=== PATIENT | female | born 1960 | race Caucasian/White ===

== ENCOUNTER → 2017-04-28 15:16 | Outpatient (CLI) | payer BC, SELFPAY ==
--- NOTE | 2017-04-28 15:22 | US_ITS ---
US breast RT complete COMPARISON: None INDICATION: Tender axillary mass ORDERING PHYSICIAN: Melissa Box PATIENT AGE: 56 years TECHNIQUE: Complete ultrasound performed of the right breast including axilla FINDINGS: There are enlarged hypoechoic lymph nodes in the right axilla measuring up to 4 x 5 x 3 cm. General survey of the right breast is unremarkable. IMPRESSION: Hypoechoic axillary adenopathy BI-RADS Category: 3 Benign Finding Short Term Follow-up RECOMMENDED FOLLOW-UP: IMM - IMMEDIATE FOLLOW-UP RECOMMENDED Recommend 4 week sonographic follow-up following adequate treatment for the lymphadenopathy. (A letter has been sent to the patient regarding results of the study.)
== END ==
PROVIDERS: PCP Physician Assistant; Visit Provider Physician Assistant
DX: R22.9 Localized swelling, mass and lump, unspecified (principal)
CPT/HCPCS: 76641

== ENCOUNTER 2017-05-04 14:06 | Emergency (ER) | payer BC, SELFPAY ==
--- NOTE | 2017-05-04 14:54 | HMH.EDGENADL ---
ED Disposition Clinical Impression: Axillary lymphadenopathy, Cat scratch Disposition: Home, Self-Care Condition on Discharge: Good Additional Instructions: continue abx. drink gotrade. return if needed follow up with pcp in am Referrals: Melissa Box [Primary Care Provider] - - Critical Care Critical Care Time: No Attestation: On 05/04/17, the high probability of a clinically significant, sudden or life threatening deterioration of the following system(s) required my full and direct attention, intervention and personal management. The time I documented below is in addition to time spent performing reported procedures but includes the following listed in this critical care notation. Medical Decision Making - Medical Records Medical records reviewed: Yes: I reviewed the patient's medical records. Vital Signs: 05/04/17 15:32 Temperature 98.3 F Temperature Source Oral Pulse Rate [Right Brachial] 88 Respiratory Rate 18 Blood Pressure [Right Arm] 143/85 Blood Pressure Mean [Right Arm] 104 Blood Pressure Source [Right Arm] Automatic Cuff Blood Pressure Position [Right Arm] Sitting 02 Sat by Pulse Oximetry 97 Oxygen Delivery Method Room Air - Lab Data Lab Results 05/04/17 15:36: WBC 5.9, RBC 4.34, Hgb 12.7, Hct 39.3, MCV 90.5, MCH 29.3, MCHC 32.4, RDW 13.4, Plt Count 224, MPV 7.4, Neut % (Auto) 47.1, Lymph % (Auto) 39.4, [place] % (Auto) 6.5, Eos % (Auto) 6.0, Baso % (Auto) 1.1, Neut # (Auto) 2.8, Lymph # (Auto) 2.1, [place] # (Auto) 0.4, Eos # (Auto) 0.4, Baso # (Auto) 0.1, ESR 31 H 05/04/17 15:36: Sodium 137, Potassium 4.2, Chloride 101, Carbon Dioxide 29, Anion Gap 11.2, BUN 14, Creatinine 1.09 H, Estimated Creat Clear 72, Estimated GFR 52 L, Est GFR ( Amer) 62, Glucose 87, Calcium 8.9, Magnesium 2.2, Total Bilirubin 0.3, AST 30, ALT 41, Alkaline Phosphatase 73, Total Protein 8.1, Albumin 4.0, Globulin 4.1 H, Albumin/Globulin Ratio 1.0 L 05/04/17 15:36: Lactic Acid 1.0 Result diagrams: 05/04/17 15:36 02 15:36 Orders (Tests/Meds): ORDERS Category Date Time Status Blood Culture Stat Micro 05/04/17 15:36 Received - Sunil Inquiry Pt receiving controlled substance: No Sunil was queried for this patient: No Medical Decision Making Narrative: The patient has had normal labs and she was advised to continue antibiotics and follow-up with a primary care physician. General Adult HPI - General Stated complaint: cat stratch fever - History of Present Illness HPI narrative: 56 years old white female with history of hypertension and hyperlipidemia. She developed right central axillary lymph nodes a week ago and was . diagnosed with cat scratch fever. She started on Bactrim 6 days ago. 2 days later, she developed muscle twitches and was told by her primary care physician to go to the ER and be checked. The patient denies having fever shortness of breath cough congestion nausea vomiting abdominal pain or rash any other symptoms. Location: lower extremity Radiation: non-radiation Severity: mild Quality: other (Minor cramps.) Consistency: intermittent Exacerbating factors: none Associated symptoms: denies other symptoms Treatments prior to arrival: none - Related Data Home Medications Medication Instructions Recorded Confirmed Aspirin [Aspirin 81mg EC Tab] 81 mg PO DAILY 05/04/17 05/04/17 Escitalopram Oxalate 10 mg PO DAILY 05/04/17 05/04/17 Losartan/Hydrochlorothiazide 1 each PO DAILY 05/04/17 05/04/17 [Losartan-Hctz 100-25 mg Tab] Simvastatin [Simvastatin] 1 tab PO DAILY 05/04/17 05/04/17 Triamterene/Hydrochlorothiazid 1 tab PO DIRECTED 05/04/17 05/04/17 [Maxzide-25 tablet] Allergies Allergy/AdvReac Type Severity Reaction Status Date / Time azithromycin Allergy Verified 05/04/17 15:39 PENICILLIN Allergy Severe S-DIFF. Uncoded 03/07/17 14:35 BREATHING [facility] History I have reviewed the patient's past medical history: Yes
--- NOTE | 2017-05-04 14:58 | ED_ITS ---
ED Disposition Clinical Impression: Axillary lymphadenopathy, Cat scratch Disposition: Home, Self-Care Condition on Discharge: Good Additional Instructions: continue abx. drink gotrade. return if needed follow up with pcp in am Referrals: Melissa Box [Primary Care Provider] - - Critical Care Critical Care Time: No Attestation: On 05/04/17, the high probability of a clinically significant, sudden or life threatening deterioration of the following system(s) required my full and direct attention, intervention and personal management. The time I documented below is in addition to time spent performing reported procedures but includes the following listed in this critical care notation. Medical Decision Making - Medical Records Medical records reviewed: Yes: I reviewed the patient's medical records. Vital Signs: 05/04/17 15:32 Temperature 98.3 F Temperature Source Oral Pulse Rate [Right Brachial] 88 Respiratory Rate 18 Blood Pressure [Right Arm] 143/85 Blood Pressure Mean [Right Arm] 104 Blood Pressure Source [Right Arm] Automatic Cuff Blood Pressure Position [Right Arm] Sitting 02 Sat by Pulse Oximetry 97 Oxygen Delivery Method Room Air - Lab Data Lab Results 05/04/17 15:36: WBC 5.9, RBC 4.34, Hgb 12.7, Hct 39.3, MCV 90.5, MCH 29.3, MCHC 32.4, RDW 13.4, Plt Count 224, MPV 7.4, Neut % (Auto) 47.1, Lymph % (Auto) 39.4 , [place] % (Auto) 6.5, Eos % (Auto) 6.0, Baso % (Auto) 1.1, Neut # (Auto) 2.8, Lymph # (Auto) 2.1, [place] # (Auto) 0.4, Eos # (Auto) 0.4, Baso # (Auto) 0.1, ESR 31 H 05/04/17 15:36: Sodium 137, Potassium 4.2, Chloride 101, Carbon Dioxide 29, Anion Gap 11.2, BUN 14, Creatinine 1.09 H, Estimated Creat Clear 72, Estimated GFR 52 L, Est GFR ( Amer) 62, Glucose 87, Calcium 8.9, Magnesium 2.2, Total Bilirubin 0.3, AST 30, ALT 41, Alkaline Phosphatase 73, Total Protein 8.1 , Albumin 4.0, Globulin 4.1 H, Albumin/Globulin Ratio 1.0 L 05/04/17 15:36: Lactic Acid 1.0 Result diagrams: 05/04/17 15:36 05/04/17 15:36 Orders (Tests/Meds): ORDERS Category Date Time Status Blood Culture Stat Micro 05/04/17 15:36 Received - Sunil Inquiry Pt receiving controlled substance: No Sunil was queried for this patient: No Medical Decision Making Narrative: The patient has had normal labs and she was advised to continue antibiotics and follow-up with a primary care physician. General Adult HPI - General Stated complaint: cat stratch fever - History of Present Illness HPI narrative: 56 years old white female with history of hypertension and hyperlipidemia. She developed right central axillary lymph nodes a week ago and was . diagnosed with cat scratch fever. She started on Bactrim 6 days ago. 2 days later, she developed muscle twitches and was told by her primary care physician to go to the ER and be checked. The patient denies having fever shortness of breath cough congestion nausea vomiting abdominal pain or rash any other symptoms. Location: lower extremity Radiation: non-radiation Severity: mild Quality: other (Minor cramps.) Consistency: intermittent Exacerbating factors: none Associated symptoms: denies other symptoms Treatments prior to arrival: none - Related Data Home Medications Medication Instructions Recorded Confirmed Aspirin [Aspirin 81mg EC Tab] 81 mg PO DAILY 05/04/17 02
[2017-05-04 15:32] VITALS: BP 143/85; PULSE 88; RESP 18; TEMP 36.8; O2SAT 97; BMI 33.6
[2017-05-04 15:56] LABS: Hematocrit 39.3 % (37.0-47.0); Hemoglobin 12.7 g/dL (12.2-16.2); Mean Corpuscular HGB Conc 32.4 g/dL (31.8-35.4); Mean Corpuscular Hemoglobin 29.3 pg (27.0-31.2); Mean Corpuscular Volume 90.5 fl (81-99); Mean Platelet Volume 7.4 fl (7.4-10.4); Neutrophils % 47.1 % (37.0-80.0); Platelet Count 224 K/mm3 (142-424); Red Blood Count 4.34 M/mm3 (4.20-5.40); Red Cell Distribution Width 13.4 % (11.5-17.5); White Blood Count 5.9 K/mm3 (4.8-10.8)
[2017-05-04 15:57] LABS: Basophils # 0.1 K/mm3 (0-0.2); Basophils % 1.1 % (0.1-2.0); Eosinophils # 0.4 K/mm3 (0.0-0.4); Lymphocytes # 2.1 K/mm3 (0.7-4.5); Lymphocytes % 39.4 K/mm3 (10-50); Monocytes # 0.4 K/mm3 (0.1-1.0); Monocytes % 6.5 % (1.7-9.3); Neutrophils # 2.8 K/mm3 (1.8-7.8)
[2017-05-04 16:10] LABS: Alanine Aminotransferase 41 U/L (12-78); Alkaline Phosphatase 73 U/L (46-116); Anion Gap 11.2 mEq/L (5-15); Aspartate Amino Transferase 30 U/L (15-37); Bilirubin,Total 0.3 mg/dL (0.2-1.0); Blood Urea Nitrogen 14 mg/dL (7-18); Calcium 8.9 mg/dL (8.5-10.1); Carbon Dioxide 29 mmol/L (21.0-32.0); Chloride 101 mmol/L (98-107); Creatinine Clearance Estimated 72 mL/min (0-300); Creatinine,Serum 1.09 mg/dL (0.55-1.02); Estimated Glomerular Filt Rate 52 ml/min (>60); GFR (African American) 62 ML/MIN (>60); Globulin 4.1 gm/dl (1.3-3.2); Glucose 87 mg/dL (74-106); Magnesium 2.2 mg/dL (1.4-2.2); Potassium 4.2 mmoL/L (3.5-5.1); Sodium 137 mmol/L (136-145); Total Protein,Serum 8.1 gm/dL (6.4-8.2)
[2017-05-04 16:54] LABS: Erythrocyte Sedimentation Rate 31 mm/hr (0-30)
[2017-05-04 17:29] VITALS: BP 136/85; PULSE 85; RESP 18; TEMP 36.6
== END 2017-05-04 17:29 | disposition home or self-care (01) ==
PROVIDERS: Emergency Provider Emergency Medicine; PCP Physician Assistant
DX: R59.0 Localized enlarged lymph nodes (principal); A28.1 Cat-scratch disease; W55.03XA Scratched by cat, initial encounter; I10 Essential (primary) hypertension; E78.5 Hyperlipidemia, unspecified; Z79.82 Long term (current) use of aspirin; Z88.0 Allergy status to penicillin; Z88.1 Allergy status to other antibiotic agents
CPT/HCPCS: 80053; 83605; 83735; 85025; 85651; 87040; 99281

== ENCOUNTER → 2017-05-08 10:52 | Outpatient (CLI) | payer BC, SELFPAY | PROVIDERS: PCP Physician Assistant; Visit Provider Physician Assistant | DX: Z20.828 Contact with and (suspected) exposure to other viral communicable diseases (principal) | CPT/HCPCS: 87275; 87276 ==

== ENCOUNTER → 2017-06-02 06:31 | Outpatient (CLI) | payer BC, SELFPAY ==
--- NOTE | 2017-06-02 | CA_ITS ---
PROCEDURE: 2-D M-mode and color Doppler study INDICATIONS FOR THE TEST: Chest pain COPD Heart Murmur+ Tobacco Smoking Palpitations Fatigue Syncope Edema Hypertension+Diabetes Mellitus Rheumatic Fever SOB+NEVES Obesity Hyperlipidemia+ Family History HD+ Additional History abn EKG, cat scratch fever PATIENT INFORMATION HEIGHT: 59 WEIGHT:171 GENDER: Female B/P: 161/82 2-D/M-MODE INTERPRETATION: 2-D MEASUREMENTS OBSERVED VALUES IN CMS Right Ventricular Dimension (RVDd) 2.0 Interventricular Septum (Thickness)(IVsd) 0.7 Left Ventricular Internal Dimensions(LVIDd) 4.7 Left Ventricular Posterior Wall (Thickness)(LVPWd) 0.8 Aortic Root 2.5 Aortic Cusp Separation 2.1 Left Atrial Dimensions (LAD) 3.4 2D 1. Left atrium is qualitatively mildly enlarged, left ventricle is normal size, there is no concentric left ventricular hypertrophy, visually estimated ejection fraction 55% with no obvious regional wall motion abnormality. 2. The right atrium and right ventricle are normal size and contractility. 3. The aortic valve is minimally thickened and fibrosed. 4. The mitral and tricuspid valve leaflets are minimally thickened. 5. The pulmonic valve is poorly visualized. 6. No significant pericardial effusion noted. DOPPLER INTERROGATION: Doppler interrogation of the aortic, mitral and tricuspid valvular presence of moderate aortic, mild mitral and moderate tricuspid regurgitation, calculated right ventricular systolic pressure is 41 mmHg consistent with moderate pulmonary hypertension, diastolic parameters are inconclusive. CONCLUSION: 1. Mildly enlarged left atrium, normal left ventricular size, visually estimated ejection fraction 55% with no obvious regional wall motion abnormality, diastolic parameters are inconclusive. 2. Moderate aortic, mild mitral and moderate tricuspid regurgitation, calculated right ventricular systolic pressure is 41 mmHg consistent with moderate pulmonary hypertension 3. No significant pericardial effusion noted.
--- NOTE | 2017-06-02 06:37 | NM_ITS ---
History and Indications: Hypertension, hyperlipidemia, family history, fatigue and abnormal EKG Procedure: Patient exercised on Zeus protocol 6 minutes, resting heart rate was 72 beats per resting blood pressure 156/90, with exercise maximum heart rate achieved 196% of the maximum predicted heart rate and a blood pressure was 216/80. Test was started due to shortness of breath and fatigue, patient denied any complained of chest pain. Patient has adequate exercise capacity achieved 7mets of workload on treadmill, the blood pressure response to exercise was hypertensive. Electrocardiogram: Resting electrocardiogram showed sinus rhythm, with exercise there is less than 1.[address] segment depression noted from the baseline EKG. The EKG portion of the exercise Myoview is negative for ischemia. Cardiac stress and resting SPECT images: Cardiac stress and resting SPECT images were obtained using technetium 99 Myoview 10.3 mCi at rest and 30.0 mCi at stress, gated SPECT further analysis of segmental wall motion and calculation of the ejection fraction also done. Cardiac stress and rest SPECT images show uniform myocardial activity without any segmental perfusion abnormality, computer derived ejection fraction is over 65% with no obvious regional wall motion abnormality, right ventricle is normal size and contractility. Conclusion: 1. The EKG portion of the exercise Myoview is negative for ischemia, patient has adequate exercise capacity achieved 7mets of workload on treadmill, the blood pressure response to exercise was hypertensive, there was no exercise-induced chest discomfort. 2. No obvious scintigraphic evidence of reversible ischemia seen, computer derived ejection fraction is over 65% with no obvious regional wall motion abnormality, right ventricle is normal size and contractility.
--- NOTE | 2017-06-02 09:58 | HMH.ITSHM ---
aspirin triamterene losartan simvastatin escitalopram
== END ==
PROVIDERS: PCP Physician Assistant; Visit Provider Internal Medicine
DX: R06.00 Dyspnea, unspecified (principal); R59.0 Localized enlarged lymph nodes; W55.03XA Scratched by cat, initial encounter; R07.9 Chest pain, unspecified; R01.1 Cardiac murmur, unspecified
CPT/HCPCS: 78452; 93017; 93306; A9502

== ENCOUNTER → 2018-05-22 16:39 | Outpatient (CLI) | payer BC, SELFPAY ==
--- NOTE | 2018-05-22 16:45 | XR_ITS ---
XR chest 2V HISTORY: Cough and congestion ITS.REASON: UPPER RESPIRATORY INFECTION ORDERING PHYSICIAN: Juani Evans PATIENT AGE: 57 years COMPARISON: None FINDINGS: The cardiomediastinal silhouette and pulmonary vascularity are within normal limits. The lungs are clear without infiltrates, suspicious nodules, or pleural effusions. No acute bony abnormalities. IMPRESSION: Negative chest, no acute finding
== END ==
PROVIDERS: PCP Family Medicine; Visit Provider Nurse Practitioner Family
DX: J06.9 Acute upper respiratory infection, unspecified (principal)
CPT/HCPCS: 71046

== ENCOUNTER → 2019-03-01 10:38 | Outpatient (CLI) | payer BC, SELFPAY ==
--- NOTE | 2019-03-01 10:44 | XR_ITS ---
PROCEDURE: XR WRIST LT MIN 3V CLINICAL INDICATION: LT WRIST PAIN Left wrist pain COMPARISON: No exams were available for comparison FINDINGS: No fracture, dislocation, lytic change, or blastic change evident. No significant degenerative change IMPRESSION: No acute findings. Dictated by: Arvind Solo MD 03/01/2019 13:28 Electronically signed by Arvind Solo MD in [place] 03/01/2019 13:28
== END ==
PROVIDERS: PCP Family Medicine; Visit Provider Physician Assistant
DX: M25.532 Pain in left wrist (principal)
CPT/HCPCS: 73110

== ENCOUNTER → 2020-06-16 11:01 | Outpatient (CLI) | payer BC, SELFPAY ==
[2020-06-16 11:33] LABS: Basophils # 0.1 K/mm3 (0-0.2); Basophils % 0.9 % (0.1-2.0); Eosinophils # 0.2 K/mm3 (0.0-0.4); Eosinophils % 2.6 % (0.1-12.0); Hematocrit 42.7 % (37.0-47.0); Hemoglobin 14.2 g/dL (12.2-16.2); Lymphocytes # 2.4 K/mm3 (0.7-4.5); Lymphocytes % 40.8 % (10-50); Mean Corpuscular HGB Conc 33.1 g/dL (31.8-35.4); Mean Corpuscular Volume 90.5 fl (81-99); Mean Platelet Volume 7.2 fl (7.4-10.4); Monocytes # 0.3 K/mm3 (0.1-1.0); Monocytes % 4.3 % (1.7-9.3); Neutrophils % 51.5 % (37.0-80.0); Platelet Count 189 K/mm3 (142-424); Red Blood Count 4.72 M/mm3 (4.20-5.40); White Blood Count 5.9 K/mm3 (4.8-10.8)
[2020-06-16 11:40] LABS: Chloride 102 mmol/L (98-107); Potassium 4.4 mmoL/L (3.5-5.1); Sodium 141 mmol/L (136-145)
[2020-06-16 11:43] LABS: Alanine Aminotransferase 25 U/L (12-78); Albumin Level 5.1 g/dl (3.5-5.0); Albumin/Globulin Ratio 1.6 (1.1-1.8); Alkaline Phosphatase 73 U/L (38-126); Anion Gap 15.4 mEq/L (5-15); Aspartate Amino Transferase 36 U/L (14-36); Bilirubin,Total 0.9 mg/dl (0.2-1.3); Blood Urea Nitrogen 15 mg/dl (7-17); Carbon Dioxide 28 mmol/L (22.0-30.0); Chol/HDL Ratio 3.8 (1-3.5); Cholesterol 139 mg/dl (140-200); Estimated Glomerular Filt Rate 73 ml/min (>60); GFR (African American) 88 ML/MIN (>60); Globulin 3.2 g/dL (1.3-3.2); Glucose 100 mg/dl (74-100); HDL Cholesterol 37 mg/dl (40-60); Total Protein,Serum 8.3 g/dl (6.3-8.2); Triglycerides 148 mg/dl (30-150); VLDL Cholesterol 30 mg/dL (0-40)
[2020-06-16 11:54] LABS: Direct LDL Cholesterol 63.29 mg/dL (100-129)
[2020-06-16 12:00] LABS: 25-OH Vitamin D, Total 33.6 ng/mL (30-100)
== END ==
PROVIDERS: Visit Provider Nurse Practitioner Family
DX: I10 Essential (primary) hypertension (principal); E78.5 Hyperlipidemia, unspecified; E55.9 Vitamin D deficiency, unspecified; D50.8 Other iron deficiency anemias
CPT/HCPCS: 36415; 80053; 80061; 82306; 85025

== ENCOUNTER → 2020-06-23 14:50 | Outpatient (CLI) | payer BC, SELFPAY ==
--- NOTE | 2020-06-23 14:58 | XR_ITS ---
PROCEDURE: XR DEXA AXIAL SKELETON CLINICAL HISTORY: OSTEOPOROSIS COMPARISON: No exams were available for comparison FINDINGS: The right hip BMD is 0.736 with a T-score of -1.0. The left hip BMD is 0.741 with a T-score of -1.0. The lumbar spine BMD is 1.129 with a T-score of 0.7. IMPRESSION: This patient is considered normal according to the World Health Organization criteria. Fracture risk is low. Based on these results a follow-up exam is recommended in 2 year. Dictated by: Arvind Solo MD 06/23/2020 22:06 Arvind Solo MD in [place] 06/24/2020 09:33
--- NOTE | 2020-06-23 14:58 | MM_ITS ---
PROCEDURE: MM DIG SCREENING MAMM BI W/CAD Digital Breast Tomosynthesis Included CLINICAL INDICATION: SCREENING There is no personal or family history of breast cancer. COMPARISON: MG MAMMO SCREENING DIGITAL BILAT from 08/05/2015 MG Screening-Bilateral Mammography from 08/08/2016 TECHNIQUE: Standard CC and MLO images and 3D Tomosynthesis was obtained. R2 CAD reviewed. FINDINGS: Moderate scattered fibroglandular densities are seen throughout both breasts. There are no CAD markings. There is no new or suspicious lesion in either breast and no suspicious microcalcifications. IMPRESSION: Moderate breast density with no suspicious lesions seen BI-RAD Category: 1 Negative FOLLOW-UP: 1YR 1 Year Follow-up (A letter has been sent to the patient regarding results of the study.) Dictated by: Dr. Ghassan Barry MD 07/01/2020 09:02 Dr. Ghassan Barry MD in [place] 07/01/2020 09:02
== END ==
PROVIDERS: PCP Family Medicine; Visit Provider Nurse Practitioner Family
DX: Z12.31 Encounter for screening mammogram for malignant neoplasm of breast (principal); M81.0 Age-related osteoporosis without current pathological fracture
CPT/HCPCS: 77063; 77067; 77080

== ENCOUNTER 2020-12-27 09:50 | Emergency (ER) | payer BC, SELFPAY ==
[2020-12-27 09:55] VITALS: BP 129/76; PULSE 91; RESP 18; TEMP 36.8; O2SAT 99; BMI 30.8
[2020-12-27 10:08] VITALS: BP 129/76; PULSE 91; RESP 18; TEMP 36.8
--- NOTE | 2020-12-27 10:23 | HMH.EDUTC ---
[facility] [place] Clinical Impression: Viral syndrome Disposition: Home, Self-Care Condition on Discharge: Good Instructions: DI for Viral Syndrome, DI for COVID-19 (Suspected or Confirmed ), Preventing the Spread of Coronavirus Discharge Instructions Additional Instructions: Drink plenty of fluids. Take tylenol or ibuprofen for pain or fever. Take the medications as directed. Follow up with your regular doctor. GO TO THE ER FOR ANY WORSENING SYMPTOMS Quarantine until you know the results of your covid-19 test. If it is positive, the health department should call you and give you further instructions about your length of Quarantine and other things. Notify your school or workplace of your results and follow their instructions regarding return to work/school. Prescriptions: Ondansetron [Zofran 4mg ODT] 4 mg PO DAILYP PRN #12 tab PRN Reason: Nausea Transmission Status: Received by [id number] Referrals: Sixto Trent MD [Primary Care Provider] - Forms: Work/School Release Time of Disposition: 10:29 Medical Decision Making - Medical Records Medical records reviewed: No: I reviewed the patient's medical records. - Sunil Inquiry Pt receiving controlled substance: No Vital Signs: 12/27/20 09:55 12/27/20 10:08 Temperature 98.2 F 98.2 F Temperature Source Oral Pulse Rate 91 H Pulse Rate [Left] 91 H Respiratory Rate 18 18 Blood Pressure 129/76 Blood Pressure [Right Arm] 129/76 Blood Pressure Mean [Right Arm] 93 02 Sat by Pulse Oximetry 99 [facility] [place] HPI - General Stated complaint: covid symptoms, wants test Time Seen by Provider: 12/27/20 10:23 Mode of Arrival: Ambulatory Source of Information: Patient Limitations: No Limitations Description of Symptoms (Recalled from Triage Doc. by RN): pt c/o LOCKHART, body aches and fever. HEENT Symptoms (Recalled from RN notes): Yes (LOCKHART) Resp Symptoms (Recalled from RN notes): No Skin Symptoms (Recalled from RN notes): No MS Symptoms (Recalled from RN notes): No Functional Status (Recalled from RN notes): myalgia and febrile - History of Present Illness Provider Complaint: She states that she has a headache, nausea, body aches and she has felt bad since yesterday. She has been fully vaccinated against covid-19. She denies any cough, congestion, sore throat, or other complaints. - Related Data Home Medications Medication Instructions Recorded Confirmed Aspirin [Aspirin 81mg EC Tab] 81 mg PO DAILY 05/04/17 05/04/17 Escitalopram Oxalate 10 mg PO DAILY 05/04/17 05/04/17 Losartan/Hydrochlorothiazide 1 each PO DAILY 05/04/17 05/04/17 [Losartan-Hctz 100-25 mg Tab] Simvastatin 1 tab PO DAILY 05/04/17 05/04/17 Triamterene/Hydrochlorothiazid 1 tab PO DIRECTED 05/04/17 05/04/17 [Maxzide-25 tablet] Bifidobacterium infantis 1.5 1,500 mmu cells PO DAILY cap 05/24/17 billion cell capsule loratadine 10 mg tablet 10 mg PO DAILY tab 05/24/17 naproxen 500 mg tablet 500 mg PO DAILY tab 05/24/17 ondansetron HCl 4 mg tablet 4 mg PO Q4H PRN 05/24/17 tizanidine 4 mg capsule 4 mg PO Q8H 05/24/17 Previous Rx's Medication Instructions Recorded Fluticasone Propionate [Flonase 2 spr NS DAILY #1 bottle 08/09/18 50mcg nasal spray 16gm] Ondansetron [Zofran 4mg ODT] 4 mg PO DAILYP PRN #12 tab 12/27/20 Allergies Allergy/AdvReac Type Severity Reaction Status Date / Time PENICILLIN Allergy Severe S-DIFF. Uncoded 03/07/17 14:35 BREATHING - Worker's Comp Is this a Worker's Comp case?: No [facility] History - Hepatitis A Screen Drug use history?: No High risk sexual behaviors?: No History of sexually transmitted infection?: No Currently employed?: No Childcare worker?: No Do you have indoor plumbing?: Yes Do you have electricity?: Yes Attestation statement:: This patient has been screened for Hepatitis A risk factors. I have reviewed the patient's past medical history: Yes Medical History: Reports:
== END 2020-12-27 10:39 | disposition home or self-care (01) ==
PROVIDERS: Emergency Provider Nurse Practitioner Family; PCP Family Medicine
DX: Z20.822 Contact with and (suspected) exposure to COVID-19 (principal)
CPT/HCPCS: 99202; C9803; G0463; U0003; U0005

== ENCOUNTER → 2021-01-18 11:37 | Outpatient (CLI) | payer BC, SELFPAY ==
[2021-01-18 12:46] LABS: Adenovirus,PCR Not Detected (NotDetected); Bordetella Pertussis Not Detected (NotDetected); Chlamydophila Pneumoniae, PCR Not Detected (NotDetected); Coronavirus 19, PCR Not Detected (NotDetected); Coronavirus 229E Not Detected (NotDetected); Coronavirus NL63 Not Detected (NotDetected); Coronavirus OC43 Not Detected (NotDetected); Coronovirus HKU1,PCR Not Detected (NotDetected); Human Metapneumovirus Not Detected (NotDetected); Influenza A, PCR Not Detected (NotDetected); Influenza AH1, 2009 Not Detected (NotDetected); Influenza AH1, PCR Not Detected (NotDetected); Influenza AH3,PCR Not Detected (NotDetected); Influenza B, PCR Not Detected (NotDetected); Mycoplasma Pneumoniae, PCR Not Detected (NotDetected); Parainfluenza 1, PCR Not Detected (NotDetected); Parainfluenza 2, PCR Not Detected (NotDetected); Parainfluenza 3, PCR Not Detected (NotDetected); Parainfluenza 4, PCR Not Detected (NotDetected); Respiratory Syncytial Virus Not Detected (NotDetected)
[2021-01-18 12:52] LABS: Basophils # 0.1 K/mm3 (0-0.2); Basophils % 1.2 % (0.1-2.0); Eosinophils # 0.2 K/mm3 (0.0-0.4); Eosinophils % 2.9 % (0.1-12.0); Hematocrit 41.9 % (37.0-47.0); Hemoglobin 13.5 g/dL (12.2-16.2); Lymphocytes % 28.5 % (10-50); Mean Corpuscular HGB Conc 32.1 g/dL (31.8-35.4); Mean Corpuscular Hemoglobin 30.9 pg (27.0-31.2); Mean Corpuscular Volume 96.3 fl (81-99); Mean Platelet Volume 7.8 fl (7.4-10.4); Monocytes # 0.4 K/mm3 (0.1-1.0); Monocytes % 5.9 % (1.7-9.3); Neutrophils # 4.3 K/mm3 (1.8-7.8); Neutrophils % 61.4 % (37.0-80.0); Platelet Count 243 K/mm3 (142-424); Red Blood Count 4.36 M/mm3 (4.20-5.40); Red Cell Distribution Width 13.8 % (11.5-17.5); White Blood Count 6.9 K/mm3 (4.8-10.8)
[2021-01-18 13:43] LABS: Strep Scrn Group A (Rapid) Negative (Negative)
[2021-01-18 16:15] LABS: Rhinovirus/Enterovirus Detected (NotDetected)
== END ==
PROVIDERS: PCP Nurse Practitioner Family; Visit Provider Nurse Practitioner Family
DX: Z20.822 Contact with and (suspected) exposure to COVID-19 (principal); B34.1 Enterovirus infection, unspecified
CPT/HCPCS: 36415; 85025; 87430; 87581; 87632; 87798; C9803; U0003; U0005

== ENCOUNTER 2023-11-23 11:08 | Outpatient (CLI) | payer MEDICARE, SELFPAY ==
[2023-11-23 17:02] LABS: Basophils % 0.7 % (0.1-2.0); Eosinophils # 0.2 K/mm3 (0.0-0.4); Eosinophils % 2.6 % (0.1-12.0); Hematocrit 46.1 % (37.0-47.0); Hemoglobin 14.6 g/dL (12.2-16.2); Lymphocytes # 2.1 K/mm3 (0.7-4.5); Lymphocytes % 33.3 % (10-50); Mean Corpuscular HGB Conc 31.7 g/dL (31.8-35.4); Mean Corpuscular Hemoglobin 30.8 pg (27.0-31.2); Mean Platelet Volume 8.8 fl (7.4-10.4); Monocytes # 0.4 K/mm3 (0.1-1.0); Monocytes % 6.2 % (1.7-9.3); Neutrophils # 3.7 K/mm3 (1.8-7.8); Neutrophils % 57.3 % (37.0-80.0); Platelet Count 229 K/mm3 (142-424); Red Blood Count 4.75 M/mm3 (4.20-5.40); Red Cell Distribution Width 13.6 % (11.5-17.5); White Blood Count 6.4 K/mm3 (4.8-10.8)
[2023-11-23 17:31] LABS: Alanine Aminotransferase 20 U/L (12-78); Albumin Level 4.5 g/dl (3.5-5.0); Albumin/Globulin Ratio 1.2 (1.1-1.8); Alkaline Phosphatase 80 U/L (38-126); Anion Gap 11.2 mEq/L (5-15); Aspartate Amino Transferase 32 U/L (14-36); Bilirubin,Total 0.9 mg/dl (0.2-1.3); Blood Urea Nitrogen 12 mg/dl (7-17); Calcium 9.6 mg/dl (8.4-10.2); Carbon Dioxide 28 mmol/L (22.0-30.0); Chloride 105 mmol/L (98-107); Chol/HDL Ratio 6.2 (1-3.5); Cholesterol 259 mg/dl (140-200); Estimated Glomerular Filt Rate 84 ml/min (>60); GFR (African American) 102 ML/MIN (>60); Globulin 3.7 g/dL (1.3-3.2); Glucose 78 mg/dl (74-100); HDL Cholesterol 42 mg/dl (40-60); Potassium 4.2 mmoL/L (3.5-5.1); Sodium 140 mmol/L (136-145); Total Protein,Serum 8.2 g/dl (6.3-8.2); Triglycerides 138 mg/dl (30-150); VLDL Cholesterol 28 mg/dL (0-40)
[2023-11-23 17:41] LABS: Direct LDL Cholesterol 170.04 mg/dL (100-129)
[2023-11-23 17:58] LABS: Thyroid Stimulating Hormone 2.33 uIU/mL (0.465-4.68)
[2023-11-24 10:45] LABS: HIV (1&2) Antibody Rapid NONREACTIVE (NONREACTIVE)
[2023-11-25 07:12] LABS: HCV Ab Non Reactive (Non Reactive)
== END 2023-11-23 23:59 | disposition home or self-care (01) ==
LOC: LAB.DROPOF 11-24 11:08
PROVIDERS: PCP Family Medicine; Visit Provider Family Medicine
DX: E78.5 Hyperlipidemia, unspecified (principal); E78.2 Mixed hyperlipidemia
CPT/HCPCS: 80050; 80053; 80061; 84443; 85025; 86803

== ENCOUNTER 2024-02-26 09:31 | Outpatient (CLI) | payer MEDICARE, SELFPAY ==
[2024-02-26 16:57] LABS: Albumin Level 4.5 g/dl (3.5-5.0); Chloride 102 mmol/L (98-107); Potassium 3.9 mmoL/L (3.5-5.1); Sodium 139 mmol/L (136-145)
[2024-02-26 17:00] LABS: Alanine Aminotransferase 26 U/L (12-78); Albumin/Globulin Ratio 1.4 (1.1-1.8); Alkaline Phosphatase 62 U/L (38-126); Anion Gap 10.9 mEq/L (5-15); Aspartate Amino Transferase 39 U/L (14-36); Bilirubin,Total 0.9 mg/dl (0.2-1.3); Blood Urea Nitrogen 19 mg/dl (7-17); Calcium 9.3 mg/dl (8.4-10.2); Carbon Dioxide 30 mmol/L (22.0-30.0); Chol/HDL Ratio 4.8 (1-3.5); Cholesterol 183 mg/dl (140-200); Estimated Glomerular Filt Rate 63 ml/min (>60); GFR (African American) 76 ML/MIN (>60); Globulin 3.2 g/dL (1.3-3.2); Glucose 85 mg/dl (74-100); HDL Cholesterol 38 mg/dl (40-60); Total Protein,Serum 7.7 g/dl (6.3-8.2); Triglycerides 126 mg/dl (30-150); VLDL Cholesterol 25 mg/dL (0-40)
[2024-02-26 17:18] LABS: Direct LDL Cholesterol 118.71 mg/dL (100-129)
== END 2024-02-26 23:59 | disposition home or self-care (01) ==
LOC: LAB.DROPOF 02-27 13:52
PROVIDERS: PCP Family Medicine; Visit Provider Family Medicine
DX: E78.5 Hyperlipidemia, unspecified (principal); E78.2 Mixed hyperlipidemia
CPT/HCPCS: 80053; 80061

== ENCOUNTER 2024-03-31 15:03 | Emergency (ER) | payer MEDICARE, SELFPAY ==
[2024-03-31 15:27] VITALS: BP 171/89; PULSE 77; RESP 20; TEMP 36.8; O2SAT 98; BMI 31.4
--- NOTE | 2024-03-31 15:34 | EXP.UTC ---
Discharge Plan Disposition Patient Disposition: Home, Self-Care Condition: Good Prescriptions Prescriptions: New azithromycin [Zithromax] 250 mg tablet 250 mg PO UD DOSE PK Qty: 6 0RF Rx Instructions: Take two (2) tablets today, then one (1) tablet days #2 thru #5 benzonatate 100 mg capsule 100 mg PO TIDP PRN (Reason: Cough) Qty: 30 0RF methylprednisolone 4 mg Tablets,Dose Pack 4 mg PO DIRECTED 6 Days Qty: 21 0RF Rx Instructions: Take 1 pack as directed for 6 days No Action pravastatin 20 mg tablet 20 mg PO DAILY 90 Days Qty: 90 0RF hydrochlorothiazide 12.5 mg tablet 12.5 mg PO AM 90 Days Qty: 90 0RF metoprolol succinate 50 mg tablet extended release 24 hr See Rx Instructions .ROUTE .COMPLEX Qty: 90 0RF Dose Instruction: TAKE 1 TABLET BY MOUTH DAILY Rx Instructions: TAKE 1 TABLET BY MOUTH DAILY escitalopram oxalate 10 mg tablet See Rx Instructions .ROUTE .COMPLEX Qty: 90 0RF Dose Instruction: TAKE 1 TABLET BY MOUTH DAILY Rx Instructions: TAKE 1 TABLET BY MOUTH DAILY Referrals Follow up/Referrals: Ryan Vela MD [Primary Care Provider] - See instructions Activity Restrictions/Add. Instructions Additional Instructions/Restrictions: Drink plenty of fluids. Take tylenol for pain or fever. Take the medications as directed. Follow up with your regular doctor. GO TO THE ER FOR ANY WORSENING SYMPTOMS Clinical Impressions Clinical Impression: Pharyngitis, Sinusitis Instructions Patient Instructions: Sinusitis, DI for Sinusitis Print Language Print Language: Palauan Discharge ED Provider: Jayjay Aceves [facility] General Stated complaint: sore throat and ear pain Mode of Arrival: Ambulatory Source of Information: Patient Time Seen by Provider: 03/31/24 15:24 Description of Symptoms (Recalled from Triage Doc. by RN): SORE THROAT, LOCKHART, COUGH X 1 WEEK HEENT Symptoms (Recalled from RN notes): Yes Resp Symptoms (Recalled from RN notes): Yes Skin Symptoms (Recalled from RN notes): No MS Symptoms (Recalled from RN notes): No Functional Status (Recalled from RN notes): WNL History of Present Illness Provider Complaint: She states that for the past 3 days she has had worsening sore throat, h.a., chest congestion, and a cough. Related Data Previous Rx's ?Medication ?Instructions ?Recorded escitalopram oxalate 10 mg tablet See Rx Instructions .Route 02/19/24 .COMPLEX #90 tabs metoprolol succinate 50 mg See Rx Instructions .Route 02/19/24 tablet,extended release 24 hr .COMPLEX #90 tabs hydrochlorothiazide 12.5 mg tablet 12.5 mg PO AM 90 days #90 tabs 02/26/24 pravastatin 20 mg tablet 20 mg PO DAILY 90 days #90 tabs 02/26/24 azithromycin 250 mg tablet 250 mg PO UD DOSE PK #6 tabs 03/31/24 (Zithromax) benzonatate 100 mg capsule 100 mg PO TIDP PRN Cough #30 caps 03/31/24 methylprednisolone 4 mg tablets in 4 mg PO DIRECTED 6 days #21 tabs 03/31/24 a dose pack Allergies Allergy/AdvReac Type Severity Reaction Status Date / Time PENICILLIN Allergy Severe S-DIFF. Uncoded 02/26/24 09:05 BREATHING Worker's Comp Is this a Worker's Comp case?: No [facility] Disclaimer: The information contained in this section may have been updated after the patient was seen, as this information can be updated by other users. Medical History History of molar HLD (hyperlipidemia) Depression Hypertension Surgical History H/O dilation and curettage Social History Smoking Status: Never smoker second hand exposure: No alcohol intake: never current occupational status: other Travel in the last 8 weeks: None household members: spouse housing: house Have you lived/traveled outside [place] in past 30 days?: No Contact w/someone who lives/traveled outside [place] past 30 days?: No Exposure to someone with infectious disease in past 14 days?: No Do you have a fever (greater than 100.4 F or 38 C)?: No Have you tested positive for COVID-19: No Exposed to someone with COVID-19 in past 14 days?: No Do you have a sore throat?: Yes Do you have a cough?: Yes Do you have any weakness?: No Do you have any diarrhea?: No Are you experiencing any unusual bleeding?: No Do you have any muscle aches/pain?: No Do you have any abdominal pain?: No Are you experiencing loss of taste or smell?: No ROS Obtained: Yes All systems reviewed & no additional complaints except as documented Constitutional Constitutional: Reports poor appetite Eyes Eyes: Reports system reviewed and no additional complaints, except as documented ENT Ears, Nose, Mouth, and Throat: Reports as per HPI Cardiovascular Cardiovascular: Reports system reviewed and no additional complaints, except as documented and Denies chest pain Respiratory Respiratory: Denies shortness of breath, Reports chest congestion, Reports cough, Denies stridor and Denies wheezing Gastrointestinal Gastrointestingal: Reports system reviewed and no additional complaints, except as documented; Denies abdominal pain, diarrhea or vomiting Musculoskeletal Musculoskeletal: Reports system reviewed and no additional complaints, except as documented and Denies arthralgias Integumentary/Breasts Skin/Breast: Reports system reviewed and no additional complaints, except as documented and Denies rash Neurologic Neurologic: Denies paresthesias Allergic/Immunologic Allergic/Immunologic: Denies wheezing Physical Exam General General appearance: alert and in no apparent distress Eye Eye exam: Present normal appearance, PERRL and EOMI ENT ENT exam: Present mucous membranes moist and normal external ear exam Expanded ENT Exam External ear exam: Present normal external inspection TM/Canal exam: Bilateral TM: erythema and bulging Nose exam: Absent sinus tenderness Nasal speculum exam: Bilateral: normal Mouth exam: Present normal external inspection; Absent drooling Teeth exam: Present normal inspection Throat exam: Present tonsillar erythema and tonsillomegaly Neck Neck exam: Present normal inspection, full ROM and trachea midline; Absent tenderness, lymphadenopathy or thyromegaly Chest Chest inspection: Present normal inspection and symmetric chest wall rise; Absent tenderness or rash Respiratory Respiratory exam: Present normal lung sounds bilaterally; Absent respiratory distress, wheezes, stridor or accessory muscle use Cardiovascular Cardiovascular exam: Present regular rate, normal rhythm and normal heart sounds Abdominal Exam Abdominal exam: Present soft; Absent distention, tenderness, guarding, rebound or rigidity Extremities Exam Extremities exam: Present normal inspection, full ROM and normal capillary refill; Absent tenderness or calf tenderness Back Exam Back exam: Present normal inspection and full ROM; Absent tenderness Neurological Exam Neurological exam: Present alert and oriented X3 Psychiatric Psychiatric exam: Present normal affect and normal mood Skin Skin exam: Present warm, dry, intact and normal color Lymphatic Lymphatic Findings: no adenopathy Medical Decision Making Medical Records Medical records reviewed: No I reviewed the patient's medical records. Screening: Per USPSTF and CDC recommendations, given the prevalence of disease in our region, it is our hospital?s policy to screen for HIV and viral Hepatitis for all patients aged 18 and over and those with ongoing risk factors. Sunil Inquiry Pt receiving controlled substance: No Vital Signs: 03/31/24 15:27 Temperature 98.3 F Temperature Source Oral Pulse Rate [Left Radial] 77 Respiratory Rate 20 Blood Pressure [Left Arm] 171/89 H Blood Pressure Mean [Left Arm] 116 02 Sat by Pulse Oximetry 98 Lab Data Lab results reviewed: Yes I reviewed the patient's lab results.
[2024-03-31 15:37] LABS: UTC Strep Screen (Rapid) Negative (Negative)
[2024-03-31 16:23] VITALS: BP 171/89; PULSE 77; RESP 20; TEMP 36.8
== END 2024-03-31 16:27 | disposition home or self-care (01) ==
PROVIDERS: Emergency Provider Nurse Practitioner Family; PCP Family Medicine
DX: J02.9 Acute pharyngitis, unspecified (principal); J32.9 Chronic sinusitis, unspecified
CPT/HCPCS: 87880; 99213; G0381

== ENCOUNTER 2024-05-28 10:32 | Outpatient (CLI) | payer MEDICARE, SELFPAY ==
[2024-05-28 18:01] LABS: Basophils % 0.7 % (0.1-2.0); Eosinophils # 0.2 K/mm3 (0.0-0.4); Eosinophils % 2.5 % (0.1-12.0); Hemoglobin 13.7 g/dL (12.2-16.2); Lymphocytes # 2.3 K/mm3 (0.7-4.5); Lymphocytes % 36.8 % (10-50); Mean Corpuscular HGB Conc 32.6 g/dL (31.8-35.4); Mean Corpuscular Hemoglobin 30.9 pg (27.0-31.2); Mean Corpuscular Volume 94.6 fl (81-99); Mean Platelet Volume 10.2 fl (7.4-10.4); Monocytes # 0.4 K/mm3 (0.1-1.0); Monocytes % 6.4 % (1.7-9.3); Neutrophils # 3.3 K/mm3 (1.8-7.8); Neutrophils % 53.4 % (37.0-80.0); Platelet Count 200 K/mm3 (142-424); Red Blood Count 4.44 M/mm3 (4.20-5.40); Red Cell Distribution Width 12.5 % (11.5-17.5); White Blood Count 6.1 K/mm3 (4.8-10.8)
[2024-05-28 21:13] LABS: Albumin Level 4.6 g/dl (3.5-5.0); Chloride 101 mmol/L (98-107); Potassium 4.1 mmoL/L (3.5-5.1); Sodium 137 mmol/L (136-145)
[2024-05-28 21:15] LABS: Alanine Aminotransferase 21 U/L (12-78); Anion Gap 10.1 mEq/L (5-15); Aspartate Amino Transferase 32 U/L (14-36); Blood Urea Nitrogen 13 mg/dl (7-17); Carbon Dioxide 30 mmol/L (22.0-30.0); Estimated Glomerular Filt Rate 63 ml/min (>60); GFR (African American) 76 ML/MIN (>60)
[2024-05-28 21:16] LABS: Albumin/Globulin Ratio 1.6 (1.1-1.8); Alkaline Phosphatase 57 U/L (38-126); Bilirubin,Total 0.6 mg/dl (0.2-1.3); Calcium 9.2 mg/dl (8.4-10.2); Chol/HDL Ratio 5.4 (1-3.5); Cholesterol 167 mg/dl (140-200); Globulin 2.8 g/dL (1.3-3.2); Glucose 82 mg/dl (74-100); HDL Cholesterol 31 mg/dl (40-60); Total Protein,Serum 7.4 g/dl (6.3-8.2); Triglycerides 140 mg/dl (30-150); VLDL Cholesterol 28 mg/dL (0-40)
[2024-05-28 21:28] LABS: Direct LDL Cholesterol 98.56 mg/dL (100-129)
== END 2024-05-28 23:59 | disposition home or self-care (01) ==
LOC: LAB.DROPOF 05-30 09:27
PROVIDERS: PCP Family Medicine; Visit Provider Family Medicine
DX: E78.5 Hyperlipidemia, unspecified (principal)
CPT/HCPCS: 80053; 80061; 85025

== ENCOUNTER 2025-02-19 08:16 | Outpatient (CLI) | payer MEDICARE, SELFPAY ==
[2025-02-19 19:04] LABS: Hematocrit 41.7 % (37.0-47.0); Hemoglobin 13.4 g/dL (12.2-16.2); Immature Granulocytes % 0.3 %; Mean Corpuscular HGB Conc 32.1 g/dL (31.8-35.4); Mean Corpuscular Hemoglobin 30.2 pg (27.0-31.2); Mean Corpuscular Volume 93.9 fl (81-99); Nucleated Red Blood Cells % 0 %; Platelet Count 218 K/mm3 (142-424); Red Blood Count 4.44 M/mm3 (4.20-5.40); Red Cell Distribution Width-SD 43.0 fL; White Blood Count 7.2 K/mm3 (4.8-10.8)
[2025-02-19 19:17] LABS: Albumin Level 4.4 g/dl (3.5-5.0); Chloride 98 mmol/L (98-107); Potassium 4.1 mmoL/L (3.5-5.1); Sodium 139 mmol/L (136-145)
[2025-02-19 19:19] LABS: Alanine Aminotransferase 21 U/L (12-78); Anion Gap 12.1 mEq/L (5-15); Aspartate Amino Transferase 33 U/L (14-36); Blood Urea Nitrogen 9 mg/dl (7-17); Carbon Dioxide 33 mmol/L (22.0-30.0); Creatinine,Serum 0.90 mg/dl (0.52-1.04); Estimated Glomerular Filt Rate 63 ml/min (>60); GFR (African American) 76 ML/MIN (>60)
[2025-02-19 19:20] LABS: Albumin/Globulin Ratio 1.3 (1.1-1.8); Alkaline Phosphatase 69 U/L (38-126); Bilirubin,Total 0.7 mg/dl (0.2-1.3); Calcium 9.4 mg/dl (8.4-10.2); Cholesterol 172 mg/dl (140-200); Globulin 3.5 g/dL (1.3-3.2); Glucose 94 mg/dl (74-100); HDL Cholesterol 31 mg/dl (40-60); Total Protein,Serum 7.9 g/dl (6.3-8.2); Triglycerides 107 mg/dl (30-150)
[2025-02-19 20:09] LABS: Hepatitis C Ab Qual. W/ RFX NEGATIVE (Negative)
[2025-02-21 08:16] LABS: Hepatitis B Surface Antigen Negative (Negative)
== END 2025-02-19 23:59 ==
LOC: LAB.DROPOF 02-21 08:16
PROVIDERS: PCP Family Medicine; Visit Provider Family Medicine
DX: E78.2 Mixed hyperlipidemia (principal); Z11.59 Encounter for screening for other viral diseases; I10 Essential (primary) hypertension; Z11.4 Encounter for screening for human immunodeficiency virus [HIV]
CPT/HCPCS: 80053; 80061; 85025; 86803; 87340; 87389